=== PATIENT | female | born 1955 | race Caucasian/White ===

== ENCOUNTER 2016-12-10 10:34 | Emergency (ER) | payer BC ==
[~2016-12-10] VITALS: Ht 162.6 cm; Wt 93.6 kg
[~2016-12-10 10:34] MED LIST: ACTOS30 MG PO; ASPIRIN E.C.81 M1 PO; AZITHROMYCIN250 MG1 PO; BIOTIN1000 MCG PO; CALCIUM500 M4 PO; CLARITIN,ALAVAR10 MG PO; COMPLETE TABLE1 EACH PO; CORDARONE200 MG PO; DIOVAN160 MG PO; DIOVAN320 MG PO; DIOVAN40 MG PO; ELIQUIS5 MG PO; FLONASE16 G1 BOTH NARES; HYDROCHLOROTHIA50 MG PO; JANUVIA100 MG PO; LANTUS 3 M100 UNITS/ SC; LASIX20 MG PO; LEVOTHROID100 MCG; LEVOTHYROXINE100 MCG PO; LEVOTHYROXINE125 MCG PO; LOPRESSOR100 M1 PO; LOPRESSOR12.5 MG PO; LOPRESSOR50 MG PO; METFORMIN HCL1000 MG PO; METOPROLOL TART25 MG PO; MULTI VITAMIN1 EACH PO; NEXIUM40 MG; NEXIUM40 MG PO; NORVASC10 MG PO; OMEPRAZOLE40 M1 PO; PRAVACHOL80 MG; PRAVASTATIN SOD40 MG PO; PROTONIX40 MG PO; SPIRONOLACTONE25 MG PO; TYLENOL EXTRA500 MG PO; Tylenol Regular Stre PO; VITAMIN B-122500 MCG SL; Vicodin,Norco 5/325 PO; [UNRECOGNIZED DRUG - OTHER] PO; celeBREX PO
[2016-12-10 10:47] VITALS: BP 173/112
[2016-12-10 12:04] LABS: HEMATOCRIT 43.8 % (36.0-46.0); MCH 27.8 PG (29.0-34.0); MCHC 34.5 G/DL (30.0-36.0); MCV 80.7 FL (83-99); MEAN PLAT.VOLUME 11.2 uM^3 (9.5-12.4); PLATELET COUNT 313 K/uL (156-360); RBC DIS.WIDTH-SD 40.9 % (39-53); RED BLOOD COUNT 5.43 M/uL (3.80-5.20); WHITE BLOOD COUNT 11.6 K/uL (4.1-10.2)
[2016-12-10] MEDS ORDERED: ULTRAM50 MG PO (12:10)
== END 2016-12-10 12:30 | disposition home or self-care (01) ==
LOC: EME 10:34
PROVIDERS: Nurse Practitioner Family
DX: M25.462 Effusion, left knee (principal); M25.562 Pain in left knee
CPT/HCPCS: 73564; 85027; 99281; 99284

== ENCOUNTER 2016-12-12 08:04 | Day surgery (SDC) | payer BC ==
[~2016-12-12] VITALS: Ht 162.6 cm; Wt 95.5 kg
[~2016-12-12 08:04] MED LIST changes: +ULTRAM50 MG PO
[2016-12-12 08:53] VITALS: BP 140/91
[2016-12-12 08:54] LABS: ANION GAP 14 MEQ/L (2-14); CHLORIDE 95 MEQ/L (99-109); POTASSIUM 4.6 MEQ/L (3.7-5.4); SAMPLE HEMOLYSIS CHECK 0; SAMPLE ICTERIC CHECK 0; SAMPLE LIPEMIA CHECK 0; SODIUM 133 MEQ/L (136-147)
[2016-12-12 08:59] LABS: GFR ESTIMATE (CALCULATED) > 59 mL/min/; GLUCOSE 283 mg/dL (70-99); UREA NITROGEN (BUN) 16 mg/dL (9-23)
[2016-12-12 10:29] LABS: POINT-OF-CARE METER ID UU13113675
[2016-12-12 10:56] VITALS: BP 154/74
[2016-12-12 11:34] VITALS: BP 144/70
== END 2016-12-12 11:42 | disposition home or self-care (01) ==
LOC: SDC 08:04
PROVIDERS: Otolaryngology
PROC: 09P770Z Removal of Drainage Device from Right Tympanic Membrane, Via Natural or Artificial Opening (ICD-10-PCS; principal; 2016-12-12)
DX: H73.21 Unspecified myringitis, right ear (principal); H65.31 Chronic mucoid otitis media, right ear; E11.9 Type 2 diabetes mellitus without complications; I10 Essential (primary) hypertension; J45.909 Unspecified asthma, uncomplicated; K21.9 Gastro-esophageal reflux disease without esophagitis
CPT/HCPCS: 80048; 82948; J0131; J0171; J2405

== ENCOUNTER 2018-04-06 04:02 | Inpatient (IN) | payer BC ==
[~2018-04-06] VITALS: Ht 162.6 cm; Wt 91.3 kg
[~2018-04-06 04:02] MED LIST changes: -LEVOTHYROXINE125 MCG PO
[2018-04-06 05:39] LABS: BASOPHIL (%) 0.8 % (0-1); BASOPHIL COUNT 0.1 K/uL (0-0.1); EOSINOPHIL (%) 0.2 % (0-5); HEMOGLOBIN 14.3 G/DL (11.9-15.5); IMMATURE GRANULOCYTE (%) 0.4 % (0.0-0.7); LYMPHOCYTE (%) 12.1 % (15-42); LYMPHOCYTE COUNT 1.6 K/uL (1.0-2.8); MCH 27.8 PG (29.0-34.0); MCHC 33.3 G/DL (30.0-36.0); MCV 83.7 FL (83-99); MONOCYTE (%) 3.7 % (3-12); MONOCYTE COUNT 0.5 K/uL (0-0.8); NEUTROPHIL (%) 82.8 % (45-76); NEUTROPHIL COUNT 11.1 K/uL (1.8-6.4); PLATELET COUNT 309 K/uL (156-360); RBC DIS.WIDTH-CV 13.5 % (11.8-14.6); RBC DIS.WIDTH-SD 41.3 % (39-53); RED BLOOD COUNT 5.14 M/uL (3.80-5.20); WHITE BLOOD COUNT 13.4 K/uL (4.1-10.2)
[2018-04-06 05:50] LABS: CHLORIDE 103 mEq/L (99-109); POTASSIUM 4.1 mEq/L (3.7-5.4); SODIUM 137 mEq/L (136-147)
[2018-04-06 05:52] LABS: GLUCOSE 368 mg/dL (70-99); TOTAL PROTEIN 7.2 g/dL (6.4-8.3)
[2018-04-06 05:54] LABS: TOTAL BILIRUBIN 0.4 mg/dL (0.0-1.0)
[2018-04-06 05:55] LABS: ALKALINE PHOSPHATASE 146 IU/L (3-129)
[2018-04-06 05:56] LABS: CREATININE 1.2 mg/dL (0.6-1.3); GFR ESTIMATE (CALCULATED) 49 mL/min/
[2018-04-06 05:57] LABS: AST (GOT) 17 IU/L (2-34); UREA NITROGEN (BUN) 15 mg/dL (9-23)
[2018-04-06 05:58] LABS: ALT (GPT) 17 IU/L (3-49)
[2018-04-06 05:59] LABS: LIPASE 26 U/L (1.0-51.0)
[2018-04-06 06:00] LABS: TROP-I INTERPRETATION NEGATIVE; TROPONIN-I 0.25 ng/mL (0.0-0.30)
[2018-04-06 08:08] LABS: GAMMA-GT 35 IU/L (4-73)
[2018-04-06 08:28] LABS: APPEARANCE SL.HAZY ((CLEAR)); BILIRUBIN NEGATIVE; BLOOD NEGATIVE; COLOR YELLOW ((YELLOW)); GLUCOSE (STRIP) >=500; KETONES 20; LEUKOCYTES NEGATIVE; NITRITE NEGATIVE; PROTEIN (STRIP) NEGATIVE; SPECIFIC GRAVITY 1.037 (1.000-1.030); UROBILINOGEN 0.2 MG/DL (0.2-1.0)
[2018-04-06] MEDS ORDERED: GLUCOPHAGE XR,500 MG PO (08:41)
[2018-04-06] MEDS ORDERED: CRESTOR5 MG PO (08:41)
[2018-04-06] MEDS ORDERED: ALDACTONE25 MG PO (08:41)
[2018-04-06] MEDS ORDERED: RANITIDINE HCL150 MG PO (08:42)
[2018-04-06 08:43] LABS: BACTERIA RARE /HPF; EPITHELIAL CELLS RARE /HPF; MUCUS TRACE /LPF; RED BLOOD CELLS 0-5 /HPF (0-5); UCUL ADDED? NO; WHITE BLOOD CELLS 0-5 /HPF (0-5)
[2018-04-06] MEDS ORDERED: FARXIGA10 MG PO (08:43)
[2018-04-06] MEDS ORDERED: QTERN 10 MG-51 EACH PO (08:45)
[2018-04-06 12:31] VITALS: BP 124/88
[2018-04-06 13:27] LABS: SITE LR
[2018-04-06 13:28] LABS: BASE EXCESS -10.2 mEq/L (-3 to +3); BICARBONATE 14.8 mEq/L (22-26); CARBOXY HGB 0.9 % (0-5); COMMENTS - BLOOD GASES C+; DEVICE NRBM; FI02 100 %; METHEMOGLOBIN 0.9 % (0-1.5); O2 FLOW 15 L/MIN; O2 SATURATION (CALCULATED) 88.8 % (95-99); PCO2 30 mm Hg (35-45); PO2 56 mm Hg (80-100); TOTAL RESP RATE 18 resp/min
[2018-04-06 13:42] LABS: HEMOGLOBIN A1c (GLYCOHEMOGLOB) 9.8 % (Below 5.7)
[2018-04-06 14:49] LABS: TROP-I INTERPRETATION POSITIVE
[2018-04-06 14:56] LABS: TROPONIN-I 3.39 ng/mL (0.0-0.30)
[2018-04-06 16:22] VITALS: BP 121/74
[2018-04-06 16:47] LABS: PTT 35.4 SEC (25-37)
[2018-04-06 18:29] LABS: TROP-I INTERPRETATION POSITIVE; TROPONIN-I 5.42 ng/mL (0.0-0.30)
[2018-04-06 19:06] VITALS: BP 122/84
[2018-04-06 23:45] VITALS: BP 109/81
[2018-04-07 06:00] VITALS: BP 108/73
[2018-04-07 06:18] LABS: HEMATOCRIT 42.7 % (36.0-46.0); HEMOGLOBIN 13.9 G/DL (11.9-15.5); MCH 27.1 PG (29.0-34.0); MCHC 32.6 G/DL (30.0-36.0); MCV 83.4 FL (83-99); PLATELET COUNT 245 K/uL (156-360); RBC DIS.WIDTH-CV 13.9 % (11.8-14.6); RBC DIS.WIDTH-SD 41.8 % (39-53); RED BLOOD COUNT 5.12 M/uL (3.80-5.20); WHITE BLOOD COUNT 16.2 K/uL (4.1-10.2)
[2018-04-07 06:45] LABS: ALBUMIN 3.3 G/DL (3.2-4.8); ALKALINE PHOSPHATASE 120 IU/L (3-129); ALT (GPT) 18 IU/L (3-49); AST (GOT) 41 IU/L (2-34); CHLORIDE 106 MEQ/L (99-109); CREATININE 1.1 MG/DL (0.6-1.3); GFR ESTIMATE (CALCULATED) 54 mL/min/; GLUCOSE 188 mg/dL (70-99); POTASSIUM 4.7 MEQ/L (3.7-5.4); SODIUM 138 MEQ/L (136-147); TOTAL BILIRUBIN 0.5 MG/DL (0.0-1.0); TOTAL PROTEIN 5.7 G/DL (6.4-8.3)
[2018-04-07 06:48] LABS: UREA NITROGEN (BUN) 24 mg/dL (9-23)
[2018-04-07 07:00] VITALS: BP 110/64
[2018-04-07 09:36] LABS: TROP-I INTERPRETATION POSITIVE
[2018-04-07 09:41] LABS: TROPONIN-I 3.63 ng/mL (0.0-0.30)
[2018-04-07 11:48] VITALS: BP 99/57
[2018-04-07 15:38] VITALS: BP 111/76
[2018-04-07 19:30] VITALS: BP 118/77
[2018-04-07 22:45] VITALS: BP 110/69
[2018-04-08 03:30] VITALS: BP 101/60
[2018-04-08 06:56] LABS: HEMATOCRIT 42.9 % (36.0-46.0); HEMOGLOBIN 13.5 G/DL (11.9-15.5); MCH 26.9 PG (29.0-34.0); MCHC 31.5 G/DL (30.0-36.0); MCV 85.5 FL (83-99); PLATELET COUNT 234 K/uL (156-360); RBC DIS.WIDTH-SD 43.5 % (39-53); RED BLOOD COUNT 5.02 M/uL (3.80-5.20); WHITE BLOOD COUNT 16.5 K/uL (4.1-10.2)
[2018-04-08 07:23] VITALS: BP 106/68
[2018-04-08 08:19] LABS: ALBUMIN 3.2 G/DL (3.2-4.8); ALKALINE PHOSPHATASE 117 IU/L (3-129); C-REACTIVE PROTEIN 222.4 MG/L (0-10); CHLORIDE 103 MEQ/L (99-109); CREATININE 0.9 MG/DL (0.6-1.3); GFR ESTIMATE (CALCULATED) > 59 mL/min/; GLUCOSE 190 mg/dL (70-99); POTASSIUM 4.3 MEQ/L (3.7-5.4); SODIUM 138 MEQ/L (136-147); TOTAL PROTEIN 5.7 G/DL (6.4-8.3); UREA NITROGEN (BUN) 19 mg/dL (9-23)
[2018-04-08 08:21] LABS: ALT (GPT) 35 IU/L (3-49); AST (GOT) 71 IU/L (2-34); TOTAL BILIRUBIN 0.9 MG/DL (0.0-1.0)
[2018-04-08 10:47] LABS: THYROTROPIN (TSH) 2.4 MIU/L (0.4-5.5)
[2018-04-08 12:28] VITALS: BP 109/72
[2018-04-08 15:25] VITALS: BP 120/82
[2018-04-08 20:15] VITALS: BP 118/76
[2018-04-08 21:15] VITALS: BP 115/77
[2018-04-09 03:30] VITALS: BP 103/63
[2018-04-09 07:30] VITALS: BP 121/72
[2018-04-09 08:43] LABS: BASOPHIL (%) 0.4 % (0-1); BASOPHIL COUNT 0.1 K/uL (0-0.1); EOSINOPHIL (%) 0 % (0-5); HEMATOCRIT 40.5 % (36.0-46.0); HEMOGLOBIN 13.1 G/DL (11.9-15.5); IMMATURE GRANULOCYTE (%) 0.4 % (0.0-0.7); LYMPHOCYTE (%) 8.5 % (15-42); LYMPHOCYTE COUNT 1.2 K/uL (1.0-2.8); MCH 27.1 PG (29.0-34.0); MCHC 32.3 G/DL (30.0-36.0); MCV 83.7 FL (83-99); MONOCYTE (%) 7.3 % (3-12); NEUTROPHIL (%) 83.4 % (45-76); NEUTROPHIL COUNT 11.5 K/uL (1.8-6.4); PLATELET COUNT 281 K/uL (156-360); RBC DIS.WIDTH-CV 14.2 % (11.8-14.6); RBC DIS.WIDTH-SD 43.1 % (39-53); RED BLOOD COUNT 4.84 M/uL (3.80-5.20); WHITE BLOOD COUNT 13.8 K/uL (4.1-10.2)
[2018-04-09 09:12] LABS: CHLORIDE 101 MEQ/L (99-109); CREATININE 0.8 MG/DL (0.6-1.3); GFR ESTIMATE (CALCULATED) > 59 mL/min/; GLUCOSE 154 mg/dL (70-99); POTASSIUM 4.2 MEQ/L (3.7-5.4); SODIUM 136 MEQ/L (136-147); UREA NITROGEN (BUN) 18 mg/dL (9-23)
[2018-04-09 09:57] LABS: ALBUMIN 3.4 G/DL (3.2-4.8); ALKALINE PHOSPHATASE 127 IU/L (3-129); ALT (GPT) 31 IU/L (3-49); AST (GOT) 44 IU/L (2-34); C-REACTIVE PROTEIN 230.4 MG/L (0-10); DIRECT BILIRUBIN 0.3 mg/dL (0.0-0.3); TOTAL BILIRUBIN 0.8 MG/DL (0.0-1.0); TOTAL PROTEIN 5.9 G/DL (6.4-8.3)
[2018-04-09 11:47] VITALS: BP 114/73
[2018-04-09 15:28] VITALS: BP 120/78
[2018-04-09 19:32] VITALS: BP 134/89
[2018-04-10] VITALS: BP 141/90
[2018-04-10 04:35] VITALS: BP 138/84
[2018-04-10 05:19] LABS: HEMATOCRIT 36.1 % (36.0-46.0); HEMOGLOBIN 11.6 G/DL (11.9-15.5); MCH 27.2 PG (29.0-34.0); MCHC 32.1 G/DL (30.0-36.0); MCV 84.5 FL (83-99); PLATELET COUNT 246 K/uL (156-360); RBC DIS.WIDTH-CV 14.2 % (11.8-14.6); RBC DIS.WIDTH-SD 43.1 % (39-53); RED BLOOD COUNT 4.27 M/uL (3.80-5.20); WHITE BLOOD COUNT 11.9 K/uL (4.1-10.2)
[2018-04-10 05:52] LABS: ALKALINE PHOSPHATASE 141 IU/L (3-129); ALT (GPT) 26 IU/L (3-49); AST (GOT) 32 IU/L (2-34); CHLORIDE 101 MEQ/L (99-109); CREATININE 0.8 MG/DL (0.6-1.3); GFR ESTIMATE (CALCULATED) > 59 mL/min/; GLUCOSE 152 mg/dL (70-99); POTASSIUM 4.4 MEQ/L (3.7-5.4); SODIUM 138 MEQ/L (136-147); TOTAL BILIRUBIN 0.7 MG/DL (0.0-1.0); TOTAL PROTEIN 5.3 G/DL (6.4-8.3); UREA NITROGEN (BUN) 16 mg/dL (9-23)
[2018-04-10 07:48] VITALS: BP 124/86
[2018-04-10 10:45] VITALS: BP 90/58
[2018-04-10 15:53] VITALS: BP 124/64
[2018-04-10 20:06] VITALS: BP 115/72
[2018-04-11 00:11] VITALS: BP 108/69
[2018-04-11 05:04] VITALS: BP 112/64
[2018-04-11 10:51] VITALS: BP 115/73
[2018-04-11] MEDS ORDERED: ELIQUIS5 MG PO (12:33)
[2018-04-11] MEDS ORDERED: FLAGYL500 MG PO (12:43)
[2018-04-11] MEDS ORDERED: LOSARTAN POTASS25 MG PO (12:43)
[2018-04-11] MEDS ORDERED: CIPRO500 MG PO (12:43)
[2018-04-11] MEDS ORDERED: LOPRESSOR25 MG PO (12:43)
[2018-04-11] MEDS ORDERED: ASPIR-LOW81 MG PO (12:43)
[2018-04-11] MEDS ORDERED: PROMETHAZINE HC25 M1 PO (13:46)
[2018-04-11] MEDS ORDERED: OXYCODONE HCL5 MG PO (13:46)
== END 2018-04-11 14:39 | disposition home or self-care (01) | DRG 872 ==
LOC: EME 04:02 → EDOF 07:55 → 4EAST 07:55 → ENRESERV 07:58 → EDOF 08:42 → 4EAST 08:42 → ENRESERV 09:43 → 4EAST 12:16 → ENRESERV 04-08 11:42 → CANRESERV 04-08 12:02 → ENRESERV 04-08 12:02 → 4EAST 04-11 14:39
PROVIDERS: Emergency Medicine; Family Medicine; Internal Medicine; Student in an Organized Health Care Education/Training Program
DX: A41.9 Sepsis, unspecified organism (principal); R65.20 Severe sepsis without septic shock; I51.81 Takotsubo syndrome; E11.9 Type 2 diabetes mellitus without complications; K80.20 Calculus of gallbladder without cholecystitis without obstruction; K80.00 Calculus of gallbladder with acute cholecystitis without obstruction; I48.2 Chronic atrial fibrillation; E03.9 Hypothyroidism, unspecified; E11.65 Type 2 diabetes mellitus with hyperglycemia; E78.5 Hyperlipidemia, unspecified; E66.9 Obesity, unspecified; E87.2 Acidosis; Z68.34 Body mass index [BMI] 34.0-34.9, adult; R78.89 Finding of other specified substances, not normally found in blood; I45.10 Unspecified right bundle-branch block; E86.0 Dehydration; R09.02 Hypoxemia; I48.0 Paroxysmal atrial fibrillation; I34.0 Nonrheumatic mitral (valve) insufficiency; R79.1 Abnormal coagulation profile; K21.9 Gastro-esophageal reflux disease without esophagitis; I50.9 Heart failure, unspecified; I11.0 Hypertensive heart disease with heart failure; Z79.4 Long term (current) use of insulin; Z79.01 Long term (current) use of anticoagulants; Z98.84 Bariatric surgery status; Z79.899 Other long term (current) drug therapy
CPT/HCPCS: 36600; 71045; 76705; 78227; 80048; 80053; 80076; 81003; 82803; 82948; 82977; 83036; 83605; 83690; 83880; 84425 90; 84443; 84484; 85025; 85027; 85347; 85379; 85730; 86140; 87040; 93005; 93306; 94760; 94799; 99281; 99284; A9537; C1760; C1769; C1887; C1894; J0744; J1644; J1815; J1885; J1940; J2250; J2270; J2405; J2543; J2550; J2765; J3010; J7030; J7040; J7050; S0030

== ENCOUNTER 2018-06-11 05:15 | Day surgery (SDC) | payer BC ==
[~2018-06-11] VITALS: Ht 162.6 cm; Wt 83.9 kg
[~2018-06-11 05:15] MED LIST changes: +ALDACTONE25 MG PO; +ASPIR-LOW81 MG PO; +CIPRO500 MG PO; +CRESTOR5 MG PO; +FARXIGA10 MG PO; +FLAGYL500 MG PO; +LOPRESSOR25 MG PO; +LOSARTAN POTASS25 MG PO; +METFORMIN HCL500 M1 PO; +OXYCODONE HCL5 MG PO; +PROMETHAZINE HC25 M1 PO; +QTERN 10 MG-51 EACH PO; +RANITIDINE HCL150 MG PO; +TOPROL XL50 MG PO; +VALSARTAN80 MG PO; +VITAMIN D32000 UNI1 PO
[2018-06-11 06:51] VITALS: BP 181/87
[2018-06-11 15:09] VITALS: BP 184/79
[2018-06-11 21:21] VITALS: BP 170/84
[2018-06-12] VITALS (7 sets, daily range): BP systolic 134–176; BP diastolic 60–84
[2018-06-12 07:07] LABS: HEMATOCRIT 39.8 % (36.0-46.0); HEMOGLOBIN 12.5 G/DL (11.9-15.5); MCH 26.2 PG (29.0-34.0); MCHC 31.4 G/DL (30.0-36.0); MCV 83.3 FL (83-99); PLATELET COUNT 271 K/uL (156-360); RBC DIS.WIDTH-CV 14.1 % (11.8-14.6); RBC DIS.WIDTH-SD 42.9 % (39-53); RED BLOOD COUNT 4.78 M/uL (3.80-5.20); WHITE BLOOD COUNT 15.2 K/uL (4.1-10.2)
[2018-06-12 07:30] LABS: ALBUMIN 3.2 G/DL (3.2-4.8); ALT (GPT) 53 IU/L (3-49); C-REACTIVE PROTEIN 169.6 MG/L (0-10); CHLORIDE 101 MEQ/L (99-109); CREATININE 0.9 MG/DL (0.6-1.3); GFR ESTIMATE (CALCULATED) > 59 mL/min/; GLUCOSE 162 mg/dL (70-99); POTASSIUM 4.9 MEQ/L (3.7-5.4); SODIUM 137 MEQ/L (136-147); TOTAL BILIRUBIN 0.5 MG/DL (0.0-1.0); TOTAL PROTEIN 5.9 G/DL (6.4-8.3); UREA NITROGEN (BUN) 12 mg/dL (9-23)
[2018-06-12 07:34] LABS: ALKALINE PHOSPHATASE 122 IU/L (3-129); AST (GOT) 88 IU/L (2-34)
[2018-06-13 06:17] LABS: BASOPHIL (%) 0.2 % (0-1); EOSINOPHIL (%) 0 % (0-5); HEMATOCRIT 36.5 % (36.0-46.0); HEMOGLOBIN 11.4 G/DL (11.9-15.5); IMMATURE GRANULOCYTE (%) 0.3 % (0.0-0.7); LYMPHOCYTE (%) 9.1 % (15-42); LYMPHOCYTE COUNT 1.1 K/uL (1.0-2.8); MCH 25.9 PG (29.0-34.0); MCHC 31.2 G/DL (30.0-36.0); MONOCYTE (%) 7.2 % (3-12); MONOCYTE COUNT 0.8 K/uL (0-0.8); NEUTROPHIL (%) 83.2 % (45-76); NEUTROPHIL COUNT 9.6 K/uL (1.8-6.4); PLATELET COUNT 225 K/uL (156-360); RBC DIS.WIDTH-CV 14.4 % (11.8-14.6); RBC DIS.WIDTH-SD 43.7 % (39-53); WHITE BLOOD COUNT 11.6 K/uL (4.1-10.2)
[2018-06-13 07:06] LABS: ALBUMIN 2.9 G/DL (3.2-4.8); ALT (GPT) 122 IU/L (3-49); CHLORIDE 101 MEQ/L (99-109); CREATININE 0.7 MG/DL (0.6-1.3); DIRECT BILIRUBIN 0.2 mg/dL (0.0-0.3); GFR ESTIMATE (CALCULATED) > 59 mL/min/; GLUCOSE 134 mg/dL (70-99); POTASSIUM 5.1 MEQ/L (3.7-5.4); SODIUM 137 MEQ/L (136-147); TOTAL BILIRUBIN 0.7 MG/DL (0.0-1.0); TOTAL PROTEIN 5.5 G/DL (6.4-8.3); UREA NITROGEN (BUN) 10 mg/dL (9-23)
[2018-06-13 07:07] LABS: ALKALINE PHOSPHATASE 189 IU/L (3-129); AST (GOT) 249 IU/L (2-34)
[2018-06-13 08:00] VITALS: BP 196/86
[2018-06-13 08:43] VITALS: BP 142/67
[2018-06-13 13:26] VITALS: BP 165/80
[2018-06-13 15:45] VITALS: BP 158/72
[2018-06-13 18:15] LABS: ALBUMIN 3.6 G/DL (3.2-4.8); ALKALINE PHOSPHATASE 220 IU/L (3-129); ALT (GPT) 103 IU/L (3-49); AST (GOT) 137 IU/L (2-34); DIRECT BILIRUBIN 0.3 mg/dL (0.0-0.3); TOTAL BILIRUBIN 0.6 MG/DL (0.0-1.0)
[2018-06-13 18:20] LABS: TOTAL PROTEIN 6.8 G/DL (6.4-8.3)
[2018-06-13 20:10] VITALS: BP 180/72
[2018-06-14 00:37] VITALS: BP 129/75
[2018-06-14 04:24] VITALS: BP 178/75
[2018-06-14 06:13] LABS: BASOPHIL (%) 0.4 % (0-1); EOSINOPHIL (%) 0.5 % (0-5); EOSINOPHIL COUNT 0.1 K/uL (0-0.3); HEMATOCRIT 36.3 % (36.0-46.0); HEMOGLOBIN 11.5 G/DL (11.9-15.5); IMMATURE GRANULOCYTE (%) 0.4 % (0.0-0.7); LYMPHOCYTE (%) 10.7 % (15-42); LYMPHOCYTE COUNT 1.2 K/uL (1.0-2.8); MCH 26.3 PG (29.0-34.0); MCHC 31.7 G/DL (30.0-36.0); MCV 82.9 FL (83-99); MONOCYTE (%) 7.9 % (3-12); MONOCYTE COUNT 0.9 K/uL (0-0.8); NEUTROPHIL (%) 80.1 % (45-76); NEUTROPHIL COUNT 8.8 K/uL (1.8-6.4); PLATELET COUNT 244 K/uL (156-360); RBC DIS.WIDTH-CV 14.3 % (11.8-14.6); RBC DIS.WIDTH-SD 43.4 % (39-53); RED BLOOD COUNT 4.38 M/uL (3.80-5.20)
[2018-06-14 06:39] LABS: ALBUMIN 2.8 G/DL (3.2-4.8); ALKALINE PHOSPHATASE 204 IU/L (3-129); ALT (GPT) 85 IU/L (3-49); AST (GOT) 79 IU/L (2-34); CHLORIDE 98 MEQ/L (99-109); CREATININE 0.6 MG/DL (0.6-1.3); DIRECT BILIRUBIN 0.2 mg/dL (0.0-0.3); GFR ESTIMATE (CALCULATED) > 59 mL/min/; GLUCOSE 141 mg/dL (70-99); LIPASE 5 U/L (1.0-51.0); POTASSIUM 4.3 MEQ/L (3.7-5.4); SODIUM 135 MEQ/L (136-147); TOTAL BILIRUBIN 0.7 MG/DL (0.0-1.0); UREA NITROGEN (BUN) 6 mg/dL (9-23)
[2018-06-14 06:43] LABS: TOTAL PROTEIN 5.3 G/DL (6.4-8.3)
[2018-06-14 08:30] VITALS: BP 177/84
[2018-06-14 11:42] VITALS: BP 138/82
[2018-06-14] MEDS ORDERED: NORCO 5/3251 TABLET PO (16:28)
[2018-06-14] MEDS ORDERED: COLACE100 MG PO (16:28)
== END 2018-06-14 17:00 | disposition home or self-care (01) ==
LOC: SDC 05:15 → 2SOUTH 11:32 → 2EASTP 11:32 → ENRESERV 11:35 → SDC 11:50 → ENRESERV 14:40 → 2EASTP 15:03 → SDC 15:37 → 2EASTP 06-14 17:00
PROVIDERS: Physician Assistant; Student in an Organized Health Care Education/Training Program
DX: K80.00 Calculus of gallbladder with acute cholecystitis without obstruction (principal); K66.0 Peritoneal adhesions (postprocedural) (postinfection); R79.89 Other specified abnormal findings of blood chemistry; I48.0 Paroxysmal atrial fibrillation; I42.8 Other cardiomyopathies; M19.90 Unspecified osteoarthritis, unspecified site; I50.9 Heart failure, unspecified; E11.9 Type 2 diabetes mellitus without complications; K21.9 Gastro-esophageal reflux disease without esophagitis; Z98.84 Bariatric surgery status; E78.5 Hyperlipidemia, unspecified; E03.9 Hypothyroidism, unspecified; I25.2 Old myocardial infarction; E66.9 Obesity, unspecified; Z68.28 Body mass index [BMI] 28.0-28.9, adult; M85.80 Other specified disorders of bone density and structure, unspecified site; Z79.01 Long term (current) use of anticoagulants; Z98.1 Arthrodesis status; Z98.890 Other specified postprocedural states; Z82.49 Family history of ischemic heart disease and other diseases of the circulatory system; Z82.3 Family history of stroke; Z80.6 Family history of leukemia; Z88.8 Allergy status to other drugs, medicaments and biological substances
CPT/HCPCS: 71046; 74018; 78226; 80048; 80053; 80076; 82948; 83690; 85025; 85027; 86140; 86850; 86900; 86901; 87070; 87075; 87205; 88304; 88307; A9537; G0378; J0131; J0330; J0461; J0690; J1100; J1170; J1815; J2250; J2405; J2543; J2550; J2710; J2765; J3010; J7030; J7050; J7120; J7643; Q0175; S0020